=== PATIENT | male | born 1990 | race Caucasian/White ===

== ENCOUNTER 2020-05-12 23:43 | Inpatient (IN) | payer OTHER, SELFPAY ==
[2020-05-12 23:43] VITALS: BP 125/88; PULSE 99; RESP 16; TEMP 36.4; O2SAT 95; BMI 26.7
[2020-05-13] VITALS (20 sets, daily range): BP systolic 102–136; BP diastolic 55–73; PULSE 87–116; RESP 16–20; TEMP 37.1–38.2; O2SAT 88–98; BMI 26.3
--- NOTE | 2020-05-13 | ED.DCSUM_ITS ---
History of Present Illness Chief Complaint: Abd Pain Informant: Patient Narrative: 29-year-old male presents for the evaluation of lower abdominal pain. 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 He was seen at [facility] he states he was prescribed Pepcid. He states that he continued to have the pain today. Few hours before arriving in the emergency department he states the pain abruptly moved to the lower abdomen. He states he feels a large pressure in his pelvis. He states he had a normal bowel movement yesterday. None today. He notes that the pain is worse when he urinates. No fevers. No prior abdominal surgeries. He states he had similar pain about 1.5 years ago and nothing was found. Past Medical History - Allergies and Home Meds Allergies/Adverse Reactions: Allergies No Known Allergies Allergy (Verified 05/12/20 23:46) Primary Care Physician: NOT,DEFINED [NON-STAFF] - Past Medical History: None Surgical History: noncontributory Smoking Status: Current every day smoker Drugs: None Review of Systems General: Denies: Chills, Fever, Sweats Eyes: Denies: Visual changes - bilaterally, Diplopia ENT: Denies: Rhinorrhea, Sore throat Cardiovascular: Denies: Chest pain, Palpitations Respiratory: Denies: Dyspnea, Cough, Dyspnea on exertion Gastrointestinal: Reports: Abdominal pain. Denies: Nausea, Vomiting, Diarrhea, Melena, Hematochezia Genitourinary: Denies: Dysuria, Hematuria, Frequency Musculoskeletal: Denies: Back pain, Extremity Pain Skin: Denies: Rash, Wounds Neurological: Denies: Headache, Weakness, Numbness Physical Exam Vital Signs/Narrative: Vital Signs Temp Pulse Resp BP Pulse Ox 05/12/20 23:43 97.6 F L 99 16 125/88 H 95 Inital Vital Signs reviewed: Yes General: Well nourished, Well developed, No Acute Distress Head: Normocephalic, Atraumatic Eyes: Perrl, EOMI ENT: Moist mucous membranes, No rhinorrhea Neck: Supple, Nontender Cardiovascular: Regular rate, Regular rhythm, No murmurs Respiratory: No distress, CTA bilaterally, Chest nontender Abdomen: Soft, Nondistended, Normal bowel sounds, Tender - RLQ and Suprapubic, Guarding, Rebound tenderness Back: Nontender, Normal Inspection Extremities: Nontender, No edema Skin: Normal color, No rash Neurological: Alert, Oriented x3, Cranial nerves II-XII grossly intact, Normal Strength, Normal Sensation Psychological: Normal affect, Normal Mood Diagnostic/Tx/Re-eval Laboratory Last Values WBC 17.6 K/mm3 (4.4-11.0) H 05/12/20 23:52 RBC 4.88 M/mm3 (4.6-6.2) 05/12/20 23:52 Hgb 14.9 g/dL (13.0-16.5) 05/12/20 23:52 Hct 43.3 % (40-54) 05/12/20 23:52 MCV 88.7 fL (80-94) 05/12/20 23:52 MCH 30.5 pg (27.0-32.0) 05/12/20 23:52 MCHC 34.4 g/dL (32-36) 05/12/20 23:52 RDW Std Deviation 40.3 fl (35.1-43.9) 05/12/20 23:52 RDW Coeff of Roger 12.4 % (11.6-14.6) 05/12/20 23:52 Plt Count 289 K/mm3 (150-450) 05/12/20 23:52 MPV 10.2 fl (6.2-12.0) 05/12/20 23:52 Immature Gran % (Auto) 0.300 % (0.0-0.9) 05/12/20 23:52 Neut % (Auto) 74.6 % (47-70) H 05/12/20 23:52 Lymph % (Auto) 16.3 % (19-41) L 05/12/20 23:52 [place] % (Auto) 8.0 % (0-10) 05/12/20 23:52 Eos % (Auto) 0.5 % (0-5) 05/12/20 23:52 Baso % (Auto) 0.3 % (0-1) 05/12/20 23:52 Absolute Neuts (auto) 13.2 X10^3/uL (2.0-7.7) H 05/12/20 23:52 Absolute Lymphs (auto) 2.87 X10^3/uL (0.83-4.51) 05/12/20 23:52 Nucleated RBC % 0 % (0-5) 05/12/20 23:52 Sodium 138 mmol/L (136-145) 05/12/20 23:52 Potassium 3.8 mmol/L (3.5-5.1) 05/12/20 23:52 Chloride 104 mmol/L (98-107) 05/12/20 23:52 Carbon Dioxide 29.0 mmol/L (21.0-32.0) 05/12/20 23:52 Anion Gap 5 (5-15) 05/12/20 23:52 BUN 13 mg/dL (7-18) 05/12/20 23:52 Creatinine 1.08 mg/dL (0.70-1.30) 05/12/20 23:52 Estim Creat Clear Calc 95.21 ml/min 05/12/20 23:52 Est GFR (MDRD) Af Amer 104 mL/min (>60) 05/12/20 23:52 Est GFR (MDRD) Non-Af 86 mL/min (>60) 05/12/20 23:52 BUN/Creatinine Ratio 12.0 RATIO (10-20) 05/12/20 23:52 Glucose 104 mg/dL (74-106) 05/12/20 23:52 Calcium 9.1 mg/dL (8.5-10.1) 05/12/20 23:52 Total Bilirubin 0.60 mg/dL (0.20-1.00) 05/12/20 23:52 AST 9 U/L (15-37) L 05/12/20 23:52 ALT 26 U/L (16-61) 05/12/20 23:52 Alkaline Phosphatase 91 U/L (45-117) 05/12/20 23:52 Total Protein 8.1 g/dL (6.4-8.2) 05/12/20 23:52 Albumin 4.4 g/dL (3.2-5.0) 05/12/20 23:52 Globulin 3.7 g/dL (2.2-4.2) 05/12/20 23:52 Albumin/Globulin Ratio 1.2 RATIO (0.9-2.4) 05/12/20 23:52 Lipase 98 U/L (73-393) 05/12/20 23:52 Urine Color Yellow (Yellow) 05/13/20 00:25 Urine Clarity Clear (Clear) 05/13/20 00:25 Urine pH 6.5 (5.0 - 8.0) 05/13/20 00:25 Ur Specific [place] 1.015 (1.002-1.030) 05/13/20 00:25 Urine Protein 30 mg/dl (Negative) H 05/13/20 00:25 Urine Glucose (UA) Normal mg/dl (Normal) 05/13/20 00:25 Urine Ketones 150 mg/dl (Negative) H 05/13/20 00:25 Urine Occult Blood 50 /ul (Negative) H 05/13/20 00:25 Urine Nitrite Negative (Negative) 05/13/20 00:25 Urine Bilirubin Negative mg/dL (Negative) 05/13/20 00:25 Urine Urobilinogen 4 mg/dl (Normal) H 05/13/20 00:25 Ur Leukocyte Esterase Negative /ul (Negative) 05/13/20 00:25 Urine RBC 0 SEEN /hpf (0-5) 05/13/20 00:25 Urine WBC 0-5 SEEN /hpf (0-5) 05/13/20 00:25 Ur Squamous Epith Cells 0 SEEN /hpf (0-5) 05/13/20 00:25 Urine Bacteria 0 SEEN /hpf (None Seen) 05/13/20 00:25 Urine Mucus 0 SEEN /hpf (<or=2+) 05/13/20 00:25 - Medical Decision Making Patient has significantly elevated white blood cell count. CT is suspicious for acute appendicitis. Please see radiologist read. Patient received Zosyn and IV fluids. He also received morphine and Zofran. Patient was updated. Dr. Hines who is on-call for surgery [facility] will admit and plan to take the patient to the operating room. ED Disposition - Plan for ED Patient: Disposition: Acute Care Hospital [facility] Diagnosis: Appendicitis, acute Referrals: NOT,DEFINED [NON-STAFF] -
--- NOTE | 2020-05-13 | CT_ITS ---
We are attempting to reach an attending provider to discuss findings. An addendum with communication details will be sent when the communication is complete. STUDY: CT ABDOMEN AND PELVIS WITH CONTRAST REASON FOR EXAM: Male, 29 years old. ABDOMINAL PAIN. RADIATION DOSAGE (If Supplied By Facility): CTDIvol = ( 9.09 ) mGy, DLP = ( 581.02 ) mGycm TECHNIQUE: Transaxial images were obtained from the dome of the diaphragm to the symphysis pubis without oral contrast. IV 100mL Isovue-300 was administered. Sagittal and coronal images were reconstructed. Individualized dose optimization techniques were used for this CT. COMPARISON: None. FINDINGS: The visualized lung bases are unremarkable. The visualized portions of the heart are within normal limits. Normal liver. Normal gallbladder and extrahepatic biliary system. Normal spleen. Normal pancreas. Normal bilateral adrenal glands. There is a 3.8 mm right renal cyst. Normal left kidney. Normal visualized stomach. There is stranding and distention of the small bowel within the right lower quadrant. There is edema around the cecum. The appendix is distended and there is surrounding edema and complex appearing fluid within the pelvis. There is early contrast within the bladder. Normal abdominal aorta. Normal inferior vena cava. There a few nonspecific retroperitoneal lymph nodes. There is a reactive lymph node in the right lower quadrant measuring 1.1 cm and 1.4 cm. Normal urinary bladder. Normal visualized prostate gland. Normal abdominal wall. Normal osseous structures. CT/Abdomen/Pelvis W IV Cont ONLY IMPRESSION: Findings are highly suspicious for acute appendicitis. The appendix is still visualized but there is surrounding inflammatory change and a small amount of free fluid within the pelvis suggesting significant surrounding edema and/or potentially leaky appendix. There is no visualized free air. Secondary terminal ileum enteritis. Secondary cecal and sigmoid colitis. Reactive lymphadenopathy. Electronically Signed: Becca Ernandez MD at 1:29 EST Tel , Service support ,
[2020-05-13 00:07] LABS: Absolute Lymphocyte Count 2.87 X10^3/uL (0.83-4.51); Absolute Neutrophil Count 13.2 X10^3/uL (2.0-7.7); Basophil# 0.05 X10^3/uL; Basophil% 0.3 % (0-1); Eosinophil# 0.08 X10^3/uL; Eosinophils% 0.5 % (0-5); Hematocrit 43.3 % (40-54); Hemoglobin 14.9 g/dL (13.0-16.5); Lymphocyte # 2.87 X10^3/ul (4.0); Lymphocyte % 16.3 % (19-41); Mean Corp Hgb Conc 34.4 g/dL (32-36); Mean Corpuscular Hgb 30.5 pg (27.0-32.0); Mean Corpuscular Volume 88.7 fL (80-94); Mean Platelet Vol. 10.2 fl (6.2-12.0); Monocyte# 1.42 X10^3/uL; NRBC Flagged by Analyzer 0 % (0-5); Neutrophil # 13.17 X10^3/uL (2.7-7.7); Neutrophil % 74.6 % (47-70); Platelet Count 289 K/mm3 (150-450); RBC Distribution Width CV 12.4 % (11.6-14.6); RBC Distribution Width SD 40.3 fl (35.1-43.9); Red Blood Count 4.88 M/mm3 (4.6-6.2); White Blood Count 17.6 K/mm3 (4.4-11.0)
[2020-05-13] MEDS: Dicyclomine 10 MG Capsule 20 MG PO (00:17)
[2020-05-13 00:19] LABS: ALB/GLOB Ratio 1.2 RATIO (0.9-2.4); AST(SGOT) 9 U/L (15-37); Alanine Aminotransfer ALT/SGPT 26 U/L (16-61); Albumin, Serum 4.4 g/dL (3.2-5.0); Alkaline Phosphatase 91 U/L (45-117); Anion Gap 5 (5-15); BUN 13 mg/dL (7-18); Calcium,Total 9.1 mg/dL (8.5-10.1); Chloride 104 mmol/L (98-107); Creatinine, Serum 1.08 mg/dL (0.70-1.30); EST Glomerular Filtration Rate 86 mL/min (>60); Est Glom Filt Rate - Afr Amer 104 mL/min (>60); Estimated Creatinine Clearance 95.21 ml/min; Globulin 3.7 g/dL (2.2-4.2); Glucose 104 mg/dL (74-106); Lipase 98 U/L (73-393); Potassium 3.8 mmol/L (3.5-5.1); Protein, Total 8.1 g/dL (6.4-8.2); Sodium Level 138 mmol/L (136-145)
[2020-05-13 00:37] LABS: Bacteria 0 SEEN /hpf (None Seen); Mucous, Urine 0 SEEN /hpf (<or=2+); Red Blood Cells-Urine 0 SEEN /hpf (0-5); Squamous Epithelial Cells - UA 0 SEEN /hpf (0-5)
[2020-05-13 00:40] LABS: Color, Urine Yellow (Yellow); Glucose, Dipstick Normal (Normal); Ketone-Dipstick 150 mg/dl (Negative); Leukocyte Esterase-Dipstick Negative /ul (Negative); Nitrite-Dipstick Negative (Negative); Occult Blood-Urine 50 /ul (Negative); Protein-Dipstick 30 mg/dl (Negative); Specific Gravity, Urine 1.015 (1.002-1.030); Urine Bilirubin Dipstick Negative (Negative); Urine Clarity Clear (Clear); Urine Urobilinogen 4 mg/dl (Normal); Urine pH 6.5 (5.0 - 8.0)
[2020-05-13 00:44] LABS: White Blood Cells 0-5 SEEN /hpf (0-5)
[2020-05-13] MEDS: Ondansetron 4 MG/2 ML Vial IV (00:58)
[2020-05-13] MEDS: Morphine 4 MG/ML Syringe IV ×2 (00:59→19:24)
[2020-05-13] MEDS: 0.9% Normal Saline 1,000 ML 125 ML IV (02:46)
[2020-05-13] MEDS: Morphine 2 MG/ML Syringe IV ×4 (03:08→16:52)
--- NOTE | 2020-05-13 05:00 | EKG12_ITS ---
Test Reason : PRE OP Blood Pressure : / mmHG Vent. Rate : 091 BPM Atrial Rate : 091 BPM P-R Int : 158 ms QRS Dur : 084 ms QT Int : 344 ms P-R-T Axes : 069 066 040 degrees QTc Int : 423 ms Normal sinus rhythm Normal ECG Confirmed by JUAN PABLO SAAB, ERROL ([id number]), script editor FLACO LEO ([id number]) on 05/16/2020 9:54:47 AM Referred By: LUIS ANGEL Confirmed By:ERROL ALMEIDA MD
--- NOTE | 2020-05-13 05:15 | NURSING ---
Report given to MEASURING MACHINE TENDER who requested pt be sent down on LR instead of ordered NS. Samantha HOWARD
[2020-05-13] MEDS: Lactated Ringers 1,000 ML 100 ML IV ×3 (05:30→16:59)
--- NOTE | 2020-05-13 05:30 | APP_PTH ---
PATIENT: JEREMIE SPRAGUE LOC: [facility] U#:[id number] AGE/SX: 29/M ROOM: [facility] RE05/13/[address]: Dr. Mickey Hines MD : 1990 BED: 1 DIS: 05/15/2020 SPEC #: [id number] RECD: 05/13/20 07:35 STATUS: ANGÉLICA RERaji #: [id number] MOO: 05/13/20 05:[address]: Mickey Hines DEPT: SURGICAL PATHOLOGY RECD BY: Joana Diaz ENTERED: 05/13/20 08:10 SP TYPE: APPENDIX OTHR DR: No Primary Care Phys Tissues: Appendix, NOS Procedures: Surgery Specimen Level III HEADER OPERATION: Laparoscopic appendectomy PRE-OP DIAGNOSIS: Acute appendicitis TISSUE SUBMITTED: Appendix MICROSCOPIC DIAGNOSIS Appendix, appendectomy: Acute necrotizing appendicitis. Acute serositis. AM:victor m 05/16/2020 MICROSCOPIC DESCRIPTION Slides are reviewed. GROSS DESCRIPTION Received in fixative is one container labeled with the patient's name and designated appendix. The specimen consists of an appendix measuring 6 cm in length and 1 cm in average diameter. No gross perforations are evident. No mass lesion is identified. Asphalt Coater sections are submitted in one cassette. / AM:victor m 05/13/2020 TC:2 CPT: 17105
--- NOTE | 2020-05-13 05:33 | HP.PCM_ITS ---
Problem List (1) Appendicitis, acute Status: Acute Qualifiers: Acute appendicitis type: unspecified acute appendicitis type Qualified Code(s): K35.80 - Unspecified acute appendicitis History of Present Illness Date of Admission: 05/13/20 The patient is a 29 year old M presented with right lower quadrant pain of 1 day duration. The patient reports that he had severe abdominal pain in the right lower quadrant. He was at 2 other hospitals before coming to our hospital. The patient denies fevers or chills. He has no Covid contacts. Past Medical History Allergies No Known Allergies Allergy (Verified 05/12/20 23:46) Home Medications: Ambulatory Orders Medication Instructions Recorded Famotidine [Pepcid] 20 mg PO DAILY 05/12/20 Surgical History: noncontributory Smoking Status: Current every day smoker Tobacco Use: Cigars, - Drugs: None Review of Systems Constitutional: Denies: Anorexia, Fever Eyes: Denies: Blurred vision HEENT: Denies: Difficulty Swallowing Cardiovascular: Denies: Chest Pain Respiratory: Denies: Cough, Shortness of Breath Gastrointestinal: Reports: Abdominal Pain. Denies: Nausea, Vomiting Genitourinary: Denies: Dysuria Skin: Denies: Jaundice Psychiatric: Denies: Anxiety VTE Information - Inpt Only VTE Present on Admission: No VTE Mechan Device Prophylaxis: SCD's Patient Problems: Active and Suspected Problems Appendicitis, acute (Acute) - Physical Exam Vitals/I&O's: Vital Signs Temp Pulse Resp BP Pulse Ox 99.8 F H 92 16 125/65 H 97 05/13/20 02:37 05/13/20 02:37 05/13/20 02:37 05/13/20 02:37 05/13/20 02:37 Oxygen Delivery Method Room Air Weight: 168 lb 1.6 oz Body Mass Index (BMI) 26.3 Intake and Output for Last 24 Hours 05/11/20 05/12/20 05/13/20 23:59 23:59 23:59 Intake Total 100 / 100 Balance 100 / 100 General: Alert, Oriented x3 Neck: No JVD Lungs: Normal air movement Cardiovascular: Regular rate, Regular Rhythm Abdomen: Soft, Non-Distended, Tender - Tender right lower quadrant with no guarding Microbiology Past 72 Hours 05/13/20 01:48 Mucosa - Nose SARS-CoV-2 Antigen (Rapid) - Final Laboratory Results 05/12/20 23:52: WBC 17.6 H, RBC 4.88, Hgb 14.9, Hct 43.3, MCV 88.7, MCH 30.5, MCHC 34.4, RDW Std Deviation 40.3, RDW Coeff of Roger 12.4, Plt Count 289, MPV 10.2, Immature Gran % (Auto) 0.300, Neut % (Auto) 74.6 H, Lymph % (Auto) 16.3 L, [place] % (Auto) 8.0, Eos % (Auto) 0.5, Baso % (Auto) 0.3, Absolute Neuts (auto) 13.2 H, Absolute Lymphs (auto) 2.87, Nucleated RBC % 0 05/12/20 23:52: Sodium 138, Potassium 3.8, Chloride 104, Carbon Dioxide 29.0, Anion Gap 5, BUN 13, Creatinine 1.08, Estim Creat Clear Calc 95.21, Est GFR (MDRD) Af Amer 104, Est GFR (MDRD) Non-Af 86, BUN/Creatinine Ratio 12.0, Glucose 104, Calcium 9.1, Total Bilirubin 0.60, AST 9 L, ALT 26, Alkaline Phosphatase 91, Total Protein 8.1, Albumin 4.4, Globulin 3.7, Albumin/Globulin Ratio 1.2, Lipase 98 05/13/20 00:25: Urine Color Yellow, Urine Clarity Clear, Urine pH 6.5, Ur Specific [place] 1.015, Urine Protein 30 H, Urine Glucose (UA) Normal, Urine Ketones 150 H, Urine Occult Blood 50 H, Urine Nitrite Negative, Urine Bilirubin Negative, Urine Urobilinogen 4 H, Ur Leukocyte Esterase Negative, Urine RBC 0 SEEN, Urine WBC 0-5 SEEN, Ur Squamous Epith Cells 0 SEEN, Urine Bacteria 0 SEEN, Urine Mucus 0 SEEN Clinical Impression(s) from Imaging Studies Abdomen/Pelvis CT 05/13/20 00:00 IMPRESSION: Findings are highly suspicious for acute appendicitis. The appendix is still visualized but there is surrounding inflammatory change and a small amount of free fluid within the pelvis suggesting significant surrounding edema and/or potentially leaky appendix. There is no visualized free air. Secondary terminal ileum enteritis. Secondary cecal and sigmoid colitis. Reactive lymphadenopathy. Electronically Signed: Becca Ernandez MD at 1:29 EST Tel , Service support , ADDENDUM: 05/13/20 0139 IMPRESSION: Findings are highly suspicious for acute appendicitis. The appendix is still visualized but there is surrounding inflammatory change and a small amount of free fluid within the pelvis suggesting significant surrounding edema and/or potentially leaky appendix. There is no visualized free air. Secondary terminal ileum enteritis. Secondary cecal and sigmoid colitis. Reactive lymphadenopathy. N.B. : The above information has been verbally conveyed by Becca Ernandez MD to Dr. Kit Baeza MD, on 05/13/2020 01:32:33 (ET). Electronically Signed: Becca Ernandez MD at 1:29 EST Tel , Service support , ADDENDUM: 05/13/20 0140 Current Medications Acetaminophen (Acetaminophen 325 Mg Tablet) 650 mg PO Q4H PRN PRN PRN Reason: Pain 1-10 or Fever Sodium Chloride () 250 mls @ 15 mls/hr IV .[id number] PRN PRN Reason: Additional IVPB Infusion Last Admin: 05/13/20 01:03 Dose: 15 mls/hr Documented by: Sodium Chloride () 1,000 mls @ 125 mls/hr IV .Q8H DOMINIQUE Last Admin: 05/13/20 02:46 Dose: 125 mls/hr Documented by: Piperacillin Sod/Tazobactam (Sod 3.375 gm/ Sodium Chloride) 50 mls @ 12.5 mls/hr IV Q8 DOMINIQUE Morphine Sulfate (Morphine 2 Mg/Ml Syringe) 2 - 4 mg IV Q2H PRN PRN PRN Reason: Pain Score 4-10 Last Admin: 05/13/20 03:08 Dose: 4 mg Documented by: Morphine Sulfate (Morphine 4 Mg/Ml Syringe) 2 - 4 mg IV Q2H PRN PRN PRN Reason: Pain Score 4-10 Ondansetron HCl (Ondansetron 4 Mg/2 Ml Vial) 4 mg IV Q6H PRN PRN PRN Reason: NAUSEA Sodium Chloride (0.9% Saline Lock 10 Ml Syringe) 10 - 40 ml IV UD PRN PRN Reason: SALINE FLUSH Assessment/Plan All Active Problems Appendicitis, acute (Acute) 29-year-old male with acute appendicitis 1. Patient has an elevated white count a CT scan consistent with acute appendicitis. I discussed laparoscopic appendectomy with the patient in detail. I discussed the risks including mild to bleeding, infection, injury to other organs such as the bowel, bladder, ureter. I also discussed conversion to open procedure and possible ileocecectomy if perforated. The patient understands all the risks and is willing proceed. Mickey Hines MD Pager: [facility] [address] [place] [address], [address] [place] [address] Office:
[2020-05-13] MEDS: Bupiv/Epi 0.25% 30 ML Vial (06:36)
--- NOTE | 2020-05-13 07:46 | PCM.OPRPT ---
Problem List (1) Appendicitis, acute Status: Acute Qualifiers: Acute appendicitis type: unspecified acute appendicitis type Qualified Code(s): K35.80 - Unspecified acute appendicitis Report of Operation Date of Procedure: 05/13/20 Pre-Operative Diagnosis: Acute appendicitis Post-Operative Diagnosis: Perforated acute appendicitis Surgery/Procedure Performed:: Laparoscopic appendectomy Specimen's removed: Appendix Drains: BANDAR to bulb suction Description of Procedure: Patient was brought back to the operating room and general anesthesia was used. The abdomen was prepped and draped in usual sterile fashion. A midline incision was made superior to the umbilicus deep to the fascia which was elevated and incised. A finger sweep was performed and a port was placed in the abdomen and it was insufflated to 15 mmHg. Camera was placed into the abdomen and under direct visualization a left lower quadrant 5 mm port was placed as well as a suprapubic 5 mm port. The patient was rotated in Trendelenburg position and the colon was followed into the pelvis. There appeared to be sigmoid colon sealing off the appendix. The sigmoid colon was peeled back and there was purulent abscess. The abscess was suctioned and the appendix was identified and freed up from its adhesions and inflammation and the right colon was brought back into the mid abdomen. The appendix was grasped and the mesoappendix was taken down using Enseal. The base of the appendix appeared very inflamed and it appeared that the appendix had perforated at this site. The remainder of the appendix was removed and placed in an Endo Catch bag. There is no feculent drainage only purulence. It was irrigated and suctioned dry and the lumen was identified. Using laparoscopic sutures a 2-0 silk suture was placed over the appendiceal orifice in a [id number] fashion. It was tied tightly and there was no feculent drainage. The abdomen was suctioned and irrigated and suctioned once more. The omentum was placed over this area and a 15 [place] drain was placed in the pelvis and up overlying the appendix as well. It was sutured in place using a 3-0 nylon suture. Next the ports were removed and the midline fascia was closed with a [id number] 0 Vicryl suture. The subcutaneous tissue was irrigated and suctioned dry and all the incisions were injected with local anesthetic and then closed with interrupted 4-0 Monocryl sutures as well as Steri-Strips and bandages. Patient was taken to PACU in stable condition with a BANDAR drain in place. - Admit VTE Documentation VTE Mechan Device Prophylaxis: SCD's
--- NOTE | 2020-05-13 08:26 | RAD_ITS ---
STUDY: X-RAY CHEST REASON FOR EXAM: Male, 29 years old. LOW PULSE OX, COUGHING UP BLOOD, LEFT CHEST PAIN TECHNIQUE: Single AP portable view of the chest. COMPARISON: None. FINDINGS: EKG electrodes are seen. The lungs are clear and expanded. There is no demonstrated pleural abnormality. Normal size heart. Normal mediastinum and margarita. Normal visualized pulmonary arteries. Normal visualized aortic arch and descending thoracic aorta. Normal visualized thoracic spine. Normal visualized ribs, clavicles, and shoulders. There is no demonstrated abnormality of the visualized soft tissue structures of the upper abdomen. RAD/Chest 1 View (Portable) IMPRESSION: Normal x-ray examination of the chest. Electronically Signed: Sonny Thomas, at 8:52 EST , Service support ,
[2020-05-13] MEDS: Ipratropium/Albuterol Sulfate 3 ML AMPUL.NEB INHALATION (08:40)
[2020-05-13] MEDS: 0.9% Saline Lock 10 ML Syringe IV ×4 (10:06→19:24)
[2020-05-13] MEDS: Famotidine 20 MG Tablet PO (11:12)
[2020-05-13] MEDS: Acetaminophen 325 MG Tablet 650 MG PO (13:18)
--- NOTE | 2020-05-13 14:36 | CASEMGMT ---
LEE ESCOBAR assessment: Face to Face with patient for initial transition planning/care coordination assessment. LEE ESCOBAR introduced self and role at [facility], pt voices understanding and consents to assessment at this time. Pt is sitting up in bed in no distress at this time. Pt is A/Ox4 at this time and answers all questions appropriately at this time. 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 Pt states they stopped here to visit family on the way and pt has had abd pain since early Saturday am and was initially seen at [facility] and discharged. Pt states pain continued and he came to [facility] ED at that time. Care providers, pharmacy, and demographics verified at this time. Presentation: Abd pain, last BM 05/11/20 Admitting dx: Acute appendicitis PCP: Pt states does not have a PCP and is from out of state. Specialists: None Preferred Pharmacy: [facility] Insurance: [employer] Prescription Benefit: [employer] Living Will/HPOA: Pt states does not have LW/HPOA and declines AD info at this time. LNOK: Angelita Traylor, Living Arrangements: Pt states lives with in apt and states no concerns at home at this time. Pt states is independent with ADL's. Transportation: Pt states drives self and states no transportation concerns at this time. DME/HHC: Pt states no current DME or need for any DME at this time. Pt states no hx of HHC or SNF in the past. Pt states no concerns with going home at time of discharge. Pt is active duty . Pt states smokes 2 cigarillos daily and does not drink ETOH. Pt states no further concerns/needs at this time. CM to follow for any further discharge planning/needs. Advised pt to ask for CM if any further questions/concerns/needs arise, voices understanding. Pt Goal: [place]
[2020-05-14] MEDS: Morphine 4 MG/ML Syringe IV ×2 (00:26→06:50)
[2020-05-14 02:00] VITALS: BP 126/65; PULSE 90; RESP 18; TEMP 37.3; O2SAT 95
[2020-05-14] MEDS: Lactated Ringers 1,000 ML 100 ML IV ×4 (03:17→23:14)
--- NOTE | 2020-05-14 07:48 | PCM.PN.SRG ---
Patient Problems: Active and Suspected Problems Appendicitis, acute (Acute) Subjective: Patient is having flatus, denies any nausea or vomiting, pain controlled with pain meds, BANDAR serosanguineous - Physical Exam Vitals/I&O's: Vital Signs Temp Pulse Resp BP Pulse Ox 99.2 F H 90 18 126/65 H 95 05/14/20 02:00 05/14/20 02:00 05/14/20 02:00 05/14/20 02:00 05/14/20 02:00 Oxygen Flow Rate (L/min) 2 Oxygen Delivery Method Room Air Weight: 168 lb 1.6 oz Body Mass Index (BMI) 26.3 Intake and Output for Last 24 Hours 05/12/20 05/13/20 05/14/20 23:59 23:59 23:59 Intake Total 3293.92 / 3293.92 1040 / 1040 Output Total 537 / 987 775 / 775 Balance 2756.92 / 2306.92 265 / 265 General: Alert, Oriented x3, Cooperative, No apparent distress HEENT: Atraumatic Lungs: Normal air movement Cardiovascular: Regular rate Abdomen: Soft, Non-Distended, Tender - Near incisions incision clean dry and intact with Steri's, BANDAR serosanguineous Extremities: No clubbing, No edema Neurological: Cranial nerves II-XII grossly intact Microbiology Past 72 Hours 05/13/20 01:48 Mucosa - Nose SARS-CoV-2 Antigen (Rapid) - Final Current Medications Acetaminophen (Acetaminophen 325 Mg Tablet) 650 mg PO Q4H PRN PRN PRN Reason: Pain 1-10 or Fever Last Admin: 05/13/20 13:18 Dose: 650 mg Documented by: Famotidine (Famotidine 20 Mg Tablet) 20 mg PO DAILY [facility] Last Admin: 05/13/20 11:12 Dose: 20 mg Documented by: Sodium Chloride () 250 mls @ 15 mls/hr IV .[id number] PRN PRN Reason: Additional IVPB Infusion Last Infusion: 05/13/20 17:20 Dose: 15 mls/hr Documented by: Piperacillin Sod/Tazobactam (Sod 3.375 gm/ Sodium Chloride) 50 mls @ 12.5 mls/hr IV Q8 [facility] Last Admin: 05/14/20 06:41 Dose: 12.5 mls/hr Documented by: Lactated Ringer's () 1,000 mls @ 100 mls/hr IV .Q10H [facility] Last Admin: 05/14/20 03:17 Dose: 100 mls/hr Documented by: Morphine Sulfate (Morphine 2 Mg/Ml Syringe) 2 - 4 mg IV Q2H PRN PRN PRN Reason: Pain Score 4-10 Last Admin: 05/13/20 16:52 Dose: 2 mg Documented by: Morphine Sulfate (Morphine 4 Mg/Ml Syringe) 2 - 4 mg IV Q2H PRN PRN PRN Reason: Pain Score 4-10 Last Admin: 05/14/20 06:50 Dose: 4 mg Documented by: Ondansetron HCl (Ondansetron 4 Mg/2 Ml Vial) 4 mg IV Q6H PRN PRN PRN Reason: NAUSEA Sodium Chloride (0.9% Saline Lock 10 Ml Syringe) 10 - 40 ml IV UD PRN PRN Reason: SALINE FLUSH Last Admin: 05/13/20 19:24 Dose: 10 ml Documented by: Medical Necessity - Tobacco Use Smoking Status: Current every day smoker Tobacco Use: Cigars, - Assessment/Plan All Active Problems Appendicitis, acute (Acute) 29-year-old male status post laparoscopic appendectomy due to perforated appendicitis with drain placement Clears today, continue BANDAR to bulb suction Continue antibiotics P.o. pain meds, continue ambulation Bianca Gray M.D. Pager: [phone] [facility] [address] [place] [address], [facility], [address] [place] [address] Office: [phone]
[2020-05-14 08:00] VITALS: BP 127/62; PULSE 97; RESP 18; TEMP 37; O2SAT 96
[2020-05-14 08:23] LABS: Absolute Lymphocyte Count 1.68 X10^3/uL (0.83-4.51); Absolute Neutrophil Count 8.8 X10^3/uL (2.0-7.7); Basophil# 0.04 X10^3/uL; Basophil% 0.3 % (0-1); Eosinophil# 0.05 X10^3/uL; Eosinophils% 0.4 % (0-5); Hemoglobin 12.3 g/dL (13.0-16.5); Lymphocyte # 1.68 X10^3/ul (4.0); Lymphocyte % 14.6 % (19-41); Mean Corp Hgb Conc 33.2 g/dL (32-36); Mean Corpuscular Hgb 30.5 pg (27.0-32.0); Mean Corpuscular Volume 91.8 fL (80-94); Mean Platelet Vol. 10.1 fl (6.2-12.0); Monocyte# 0.94 X10^3/uL; Monocyte% 8.2 % (0-10); NRBC Flagged by Analyzer 0 % (0-5); Neutrophil # 8.78 X10^3/uL (2.7-7.7); Neutrophil % 76.2 % (47-70); Platelet Count 216 K/mm3 (150-450); RBC Distribution Width CV 12.6 % (11.6-14.6); RBC Distribution Width SD 42.2 fl (35.1-43.9); Red Blood Count 4.03 M/mm3 (4.6-6.2); White Blood Count 11.5 K/mm3 (4.4-11.0)
[2020-05-14 08:46] LABS: Anion Gap 2 (5-15); BUN 13 mg/dL (7-18); BUN/Creat Ratio 12.7 RATIO (10-20); Calcium,Total 8.5 mg/dL (8.5-10.1); Chloride 105 mmol/L (98-107); Creatinine, Serum 1.02 mg/dL (0.70-1.30); EST Glomerular Filtration Rate 92 mL/min (>60); Est Glom Filt Rate - Afr Amer 111 mL/min (>60); Estimated Creatinine Clearance 100.81 ml/min; Glucose 79 mg/dL (74-106); Potassium 4.1 mmol/L (3.5-5.1); Sodium Level 137 mmol/L (136-145)
[2020-05-14] MEDS: Famotidine 20 MG Tablet PO (10:31)
[2020-05-14] MEDS: oxyCODONE 5 MG Tablet 10 MG PO ×3 (10:31→21:42)
[2020-05-14 10:35] VITALS: BP 140/73; PULSE 92; RESP 18; TEMP 36.9; O2SAT 96
[2020-05-14 16:35] VITALS: BP 127/72; PULSE 96; RESP 18; TEMP 37.2; O2SAT 96
[2020-05-14 22:35] VITALS: BP 129/69; PULSE 84; RESP 18; TEMP 37.6; O2SAT 96
[2020-05-15] MEDS: oxyCODONE 5 MG Tablet 10 MG PO ×3 (03:11→12:27)
[2020-05-15 05:00] VITALS: BP 126/73; PULSE 87; RESP 18; TEMP 37.2; O2SAT 96
[2020-05-15 05:58] LABS: Absolute Lymphocyte Count 2.44 X10^3/uL (0.83-4.51); Absolute Neutrophil Count 4.8 X10^3/uL (2.0-7.7); Basophil# 0.03 X10^3/uL; Basophil% 0.4 % (0-1); Eosinophil# 0.17 X10^3/uL; Eosinophils% 2.1 % (0-5); Hematocrit 34.9 % (40-54); Hemoglobin 11.9 g/dL (13.0-16.5); Lymphocyte # 2.44 X10^3/ul (4.0); Lymphocyte % 29.7 % (19-41); Mean Corp Hgb Conc 34.1 g/dL (32-36); Mean Corpuscular Hgb 31.1 pg (27.0-32.0); Mean Corpuscular Volume 91.1 fL (80-94); Monocyte# 0.71 X10^3/uL; Monocyte% 8.6 % (0-10); NRBC Flagged by Analyzer 0 % (0-5); Neutrophil # 4.84 X10^3/uL (2.7-7.7); Neutrophil % 58.8 % (47-70); Platelet Count 226 K/mm3 (150-450); RBC Distribution Width CV 12.4 % (11.6-14.6); RBC Distribution Width SD 41.2 fl (35.1-43.9); Red Blood Count 3.83 M/mm3 (4.6-6.2); White Blood Count 8.2 K/mm3 (4.4-11.0)
--- NOTE | 2020-05-15 08:15 | PN.SURG_ITS ---
Patient Problems: Active and Suspected Problems Appendicitis, acute (Acute) Subjective: Patient tolerated clears, BANDAR serous?removed - Physical Exam Vitals/I&O's: Vital Signs Temp Pulse Resp BP Pulse Ox 98.9 F 87 18 126/73 H 96 05/15/20 05:00 05/15/20 05:00 05/15/20 05:00 05/15/20 05:00 05/15/20 05:00 Oxygen Flow Rate (L/min) 2 Oxygen Delivery Method Room Air Weight: 168 lb 1.6 oz Body Mass Index (BMI) 26.3 Intake and Output for Last 24 Hours 05/13/20 05/14/20 05/15/20 23:59 23:59 23:59 Intake Total 3293.92 / 3293.92 3846.92 / 3966.92 170 / 170 Output Total 537 / 987 2280 / 2280 Balance 2756.92 / 2306.92 1566.92 / 1686.92 170 / 170 General: Alert, Oriented x3, Cooperative, No apparent distress HEENT: Atraumatic Lungs: Normal air movement Abdomen: Soft, Tender - Near incisions dressed with Steri's no peritoneal signs Extremities: No clubbing, No cyanosis, No edema Microbiology Past 72 Hours 05/13/20 01:48 Mucosa - Nose SARS-CoV-2 Antigen (Rapid) - Final Laboratory Results 05/14/20 08:01: WBC 11.5 H, RBC 4.03 L, Hgb 12.3 L, Hct 37.0 L, MCV 91.8, MCH 30.5, MCHC 33.2, RDW Std Deviation 42.2, RDW Coeff of Roger 12.6, Plt Count 216, MPV 10.1, Immature Gran % (Auto) 0.300, Neut % (Auto) 76.2 H, Lymph % (Auto) 14.6 L, [place] % (Auto) 8.2, Eos % (Auto) 0.4, Baso % (Auto) 0.3, Absolute Neuts (auto) 8.8 H, Absolute Lymphs (auto) 1.68, Nucleated RBC % 0 05/14/20 08:01: Sodium 137, Potassium 4.1, Chloride 105, Carbon Dioxide 30.0, Anion Gap 2 L, BUN 13, Creatinine 1.02, Estim Creat Clear Calc 100.81, Est GFR (MDRD) Af Amer 111, Est GFR (MDRD) Non-Af 92, BUN/Creatinine Ratio 12.7, Glucose 79, Calcium 8.5 05/15/20 05:40: WBC 8.2, RBC 3.83 L, Hgb 11.9 L, Hct 34.9 L, MCV 91.1, MCH 31.1, MCHC 34.1, RDW Std Deviation 41.2, RDW Coeff of Roger 12.4, Plt Count 226, MPV 10.0, Immature Gran % (Auto) 0.400, Neut % (Auto) 58.8, Lymph % (Auto) 29.7, [place] % (Auto) 8.6, Eos % (Auto) 2.1, Baso % (Auto) 0.4, Absolute Neuts (auto) 4.8, Absolute Lymphs (auto) 2.44, Nucleated RBC % 0 Current Medications Acetaminophen (Acetaminophen 325 Mg Tablet) 650 mg PO Q4H PRN PRN PRN Reason: Pain 1-10 or Fever Last Admin: 05/13/20 13:18 Dose: 650 mg Documented by: Famotidine (Famotidine 20 Mg Tablet) 20 mg PO DAILY [facility] Last Admin: 05/14/20 10:31 Dose: 20 mg Documented by: Sodium Chloride () 250 mls @ 15 mls/hr IV .[id number] PRN PRN Reason: Additional IVPB Infusion Last Infusion: 05/14/20 06:41 Dose: 0 mls/hr Documented by: Piperacillin Sod/Tazobactam (Sod 3.375 gm/ Sodium Chloride) 50 mls @ 12.5 mls/hr IV Q8 [facility] Last Admin: 05/15/20 05:39 Dose: 12.5 mls/hr Documented by: Lactated Ringer's () 1,000 mls @ 100 mls/hr IV .Q10H [facility] Last Admin: 05/14/20 23:14 Dose: 100 mls/hr Documented by: Morphine Sulfate (Morphine 2 Mg/Ml Syringe) 2 - 4 mg IV Q2H PRN PRN PRN Reason: Pain Score 4-10 Last Admin: 05/13/20 16:52 Dose: 2 mg Documented by: Morphine Sulfate (Morphine 4 Mg/Ml Syringe) 2 - 4 mg IV Q2H PRN PRN PRN Reason: Pain Score 4-10 Last Admin: 05/14/20 06:50 Dose: 4 mg Documented by: Ondansetron HCl (Ondansetron 4 Mg/2 Ml Vial) 4 mg IV Q6H PRN PRN PRN Reason: NAUSEA Oxycodone HCl (Oxycodone 5 Mg Tablet) 5 mg PO Q4H PRN PRN PRN Reason: Pain Score 1-5 Oxycodone HCl (Oxycodone 5 Mg Tablet) 10 mg PO Q4H PRN PRN PRN Reason: Pain Score 6-10 Last Admin: 05/15/20 03:11 Dose: 10 mg Documented by: Sodium Chloride (0.9% Saline Lock 10 Ml Syringe) 10 - 40 ml IV UD PRN PRN Reason: SALINE FLUSH Last Admin: 05/13/20 19:24 Dose: 10 ml Documented by: Medical Necessity - Tobacco Use Smoking Status: Current every day smoker Tobacco Use: Cigars, - Assessment/Plan All Active Problems Appendicitis, acute (Acute) 29-year-old male status post laparoscopic appendectomy due to perforated appendicitis with drain placement Transitional diet?if tolerates may DC home. Continue antibiotics we will send patient home with Augmentin for another day and a half. P.o. pain meds, continue ambulation Bianca Gray M.D. Pager: [phone] [facility] [address] [place] [address], [facility], [address] [place] [id number] Office: [phone]
[2020-05-15 08:22] VITALS: BP 120/61; PULSE 90; RESP 16; TEMP 36.8; O2SAT 97
[2020-05-15] MEDS: Lactated Ringers 1,000 ML 100 ML IV (08:23)
[2020-05-15] MEDS: Famotidine 20 MG Tablet PO (08:24)
[2020-05-15 08:30] VITALS: O2SAT 97
--- NOTE | 2020-05-15 09:07 | DCINST_ITS ---
Discharge Diet: - - Transitional diet Discharge Activity: May not drive while taking narcotic pain medications., May Shower May shower in (days): 0 - Okay to shower today Lifting Restrictions: Lifting greater than 20 pounds x 2 weeks Call your doctor if your incision/area has: Continuous Slow Oozing, Sudden Increased Bleeding, Increased Pain/ Swelling, Increased Redness, Foul Smelling Discharge, Swelling at the incision site Call your doctor if you observe: Fever of 101 or Higher Change Dressing in (Days):: 1 - Change daily and as needed for the left lower quadrant previous drain site Additional Instructions: Okay to take ibuprofen 400-600 mg PO q6hr PRN along with the Percocet. Avoid Tylenol since there is already Tylenol in the Percocet. Take all pain meds with food. Percocet can cause constipation recommend taking daily stool softener (i.e. Colace/docusate) while taking the pain meds. Medications to take at Discharge Famotidine [Pepcid] 20 mg PO DAILY 05/12/20 Amoxicillin/Potassium Clav [Augmentin 875-125 Tablet] 1 ea PO BID #3 tab 05/15/20 Oxycodone HCl/Acetaminophen [Percocet 5/325] 1 - 2 tablet PO Q6H PRN PRN 4 Days #20 tablet 05/15/20 Allergies/Adverse Reactions: Allergies No Known Allergies Allergy (Verified 05/12/20 23:46) The following prescriptions were given: Amoxicillin/Potassium Clav [Augmentin 875-125 Tablet] 1 ea PO BID #3 tab Transmission Status: Pending to [facility] Oxycodone HCl/Acetaminophen [Percocet 5/325] 1 - 2 tablet PO Q6H PRN PRN 4 Days #20 tablet PRN Reason: Pain Transmission Status: Received by [facility] [address] Primary Care Physician: NOT,DEFINED [NON-STAFF] - Test Results: Test results from this visit will be discussed in further detail at your follow- up appointment, if applicable. Please Follow Up With: Mickey Hines MD - After 5:00 on the weekends call [phone] with any concerns When: Call the office for a follow-up appointment in 1 week [phone] Proposed Discharge Date: 05/15/20
[2020-05-15 14:20] VITALS: BP 108/60; PULSE 85; RESP 18; TEMP 36.8; O2SAT 96
== END 2020-05-15 18:28 | disposition home or self-care (01) | DRG 340 ==
LOC: ED 05-13 01:27 → PCU 05-13 05:00
PROVIDERS: Surgery; Admitting Provider Surgery; Emergency Provider Emergency Medicine; Visit Provider Surgery
PROC: 0DTJ4ZZ Resection of Appendix, Percutaneous Endoscopic Approach (ICD-10-PCS; CPT 44970; principal; 2020-05-13 05:30)
DX: K35.32 Acute appendicitis with perforation, localized peritonitis, and gangrene, without abscess (principal); Z20.822 Contact with and (suspected) exposure to COVID-19; F17.290 Nicotine dependence, other tobacco product, uncomplicated; Z79.899 Other long term (current) drug therapy
CPT/HCPCS: 36415; 71045; 74177; 80048; 80053; 81001; 83690; 85025; 87426; 88304; 93005; 99284; 99406; J7030; J7040; J7050; J7120; Q9967; A4216; C1760; J2405